=== PATIENT | female | born 2000 | race Caucasian/White ===

== ENCOUNTER 2024-02-15 14:30 | Emergency (ER) | payer OTHER ==
[2024-02-15] MEDS ORDERED: IBUPROFEN 200 MG TAB PO ONE (15:08)
[2024-02-15] MEDS ORDERED: ACETAMINOPHEN 325 MG TABLET ONE (15:08)
--- NOTE | 2024-02-15 17:19 | RAD REPORT ---
EXAM DESCRIPTION: RAD - Ankle Right 3 View - 02/15/2024 3:26 pm CLINICAL HISTORY: PAIN COMPARISON: No comparisons TECHNIQUE: Right ankle, 3 views. FINDINGS: No fracture, dislocation or periosteal reaction. No joint effusion seen. No joint space na rrowing. No soft tissue abnormality. IMPRESSION: Negative right ankle
--- NOTE | 2024-02-15 17:22 | ER ---
Nurse's Notes [facility] Name: Adele Marx Age: 23 yrs Sex: Female : 2000 Arrival Date: 02/15/2024 Time: 14:30 Bed 12 Private MD: Diagnosis: Sprain of unspecified ligament of right ankle, initial encounter Presentation: 02/14 14:49 Chief complaint: Patient states: Pt states while at work she stepped wrong and rolled dd2 her right ankle. C/o of pain. Coronavirus screen: At this time, the client does not indicate any symptoms associated with coronavirus-19. Ebola Screen: No symptoms or risks identified at this time. Initial Sepsis Screen: Does the patient meet any 2 criteria? No. Patient's initial sepsis screen is negative. Does the patient have a suspected source of infection? No. Patient's initial sepsis screen is negative. Risk Assessment: Do you want to hurt yourself or someone else? Patient reports no desire to harm self or others. Onset of symptoms was February 15, 2024. 14:49 Method Of Arrival: Ambulatory dd2 14:49 Acuity: STACY 4 dd2 Triage Assessment: 14:52 General: Appears in no apparent distress. Behavior is calm, cooperative. Pain: dd2 Complains of pain in Rt ankle. Musculoskeletal: Tenderness present in rt ankle. 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 - Infectious Disease History:: Denies. - Social history:: Smoking status: Reported history of juuling and/or vaping. Screenin:09 [facility] ED Fall Risk Assessment (Adult) History of falling in the last 3 months, iw including since admission Yes- single mechanical fall (1 pt) Confusion or Disorientation No (0 pts) Intoxicated or Sedated No (0 pts) Impaired Gait No (0 pts) Mobility Assist Device Used No (0 pt) Altered Elimination No (0 pt) Score/Fall Risk Level 0 - 2 = Low Risk Oriented to surroundings, Maintained a safe environment. Abuse screen: Denies threats or abuse. Nutritional screening: No deficits noted. Tuberculosis screening: No symptoms or risk factors identified. Assessment: 15:15 General: Appears in no apparent distress. Behavior is calm, cooperative. Pain: iw Complains of pain in right leg and right ankle. Neuro: Level of Consciousness is awake, alert, obeys commands, Oriented to person, place, time, situation, Moves all extremities. Respiratory: Airway is patent Respiratory effort is even, unlabored, Respiratory pattern is regular. Musculoskeletal: Range of motion: limited in right ankle Swelling present in right ankle and anterior aspect of right ankle. Vital Signs: 14:49 BP 131 / 80; Pulse 80; Resp 15; Temp 97.4; Pulse Ox 100% ; dd2 ED Course: 14:35 Patient arrived in ED. mg5 14:35 Jenn Castillo PA-C is PHCP. sb4 14:35 Joaquim Francois MD is Attending Physician. sb4 14:52 Triage completed. dd2 14:52 Arm band placed on left wrist. Patient placed in an exam room, on a stretcher, on pulse dd2 oximetry, Patient notified of wait time. 15:04 Apple Kim, NAHID is Primary Nurse. iw 15:28 Ankle Right 3 View XRAY In Process Unspecified. EDMS 15:40 Patient has correct armband on for positive identification. Provided Education on: . iw 16:09 Patient did not have IV access during this emergency room visit. iw 17:21 Khadar García MD is Referral Physician. sb4 17:48 No provider procedures requiring assistance completed. iw Administered Medications: 15:13 Drug: Ibuprofen PO 600 mg PO once Route: PO; iw 15:30 Follow up: Response: No adverse reaction iw 15:13 Drug: Acetaminophen PO 650 mg PO once Route: PO; iw 15:30 Follow up: Response: No adverse reaction iw Medication: 15:15 VIS not applicable for this client. iw Outcome: 17:21 Discharge ordered by . sb4 17:48 Discharged to home ambulatory, iw 17:48 Condition: good 17:48 Discharge instructions given to patient, Instructed on discharge instructions, follow up and referral plans. Demonstrated understanding of instructions, follow-up care, medications, 17:49 Patient left the ED. iw Signatures: Dispatcher [employer] EDMS Apple Kim RN RN iw Jenn Castillo PA-C PA-C sb4 Danyell Soliman mg5 JOSE RAFAEL NARANJO, RN RN dd2
--- NOTE | 2024-02-15 17:22 | EDPHYS ---
Physician Documentation [facility] Name: Adele Marx Age: 23 yrs Sex: Female : 2000 Arrival Date: 02/15/2024 Time: 14:30 Bed 12 Private MD: ED Physician Joaquim Francois HPI: 02/14 15:04 This 23 yrs old Female presents to ER via Ambulatory with complaints of Ankle Injury. sb4 15:04 The patient presents with an injury, pain, that is acute. The complaints affect the sb4 right ankle. Onset: The symptoms/episode began/occurred just prior to arrival. Context: The problem was sustained at work, resulted from a mis-step by the patient, The mechanism of injury involved inversion of the affected ankle. The patient can partially bear weight on the affected extremity. the patient is able to ambulate. Associated signs and symptoms: The patient has no apparent associated signs or symptoms. Modifying factors: The symptoms are alleviated by elevation of extremity, sitting, the symptoms are aggravated by weight bearing, movement. The patient has not experienced similar symptoms in the past. The patient has not recently seen a physician. 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 - Infectious Disease History:: Denies. - Social history:: Smoking status: Reported history of juuling and/or vaping. ROS: 15:04 Constitutional: Negative for fever, chills, and weight loss, sb4 15:04 MS/extremity: Positive for injury or acute deformity, pain, swelling, tenderness, of the right ankle, 15:04 All other systems are negative, Exam: 15:04 Constitutional: This is a well developed, well nourished patient who is awake, alert, sb4 and in no acute distress. Head/Face: Normocephalic, atraumatic. Eyes: Extra-ocular motions intact. Periorbital areas with no swelling, redness, or edema. ENT: Mucous membranes moist. Skin: Warm, dry with normal turgor. Normal color with no rashes, no lesions, and no evidence of cellulitis. 15:04 Musculoskeletal/extremity: Circulation is intact in all extremities. Pulses: are normal with no appreciated deficits, Sensation intact. Joints: the right ankle displays painful range of motion, swelling, tenderness, Vital Signs: 14:49 BP 131 / 80; Pulse 80; Resp 15; Temp 97.4; Pulse Ox 100% ; dd2 MDM: 14:46 Patient medically screened. sb4 15:52 Independent interpretation of the following test(s) in the Emergency Department X-Ray: sb4 My interpretation is my interpretation of the right ankle xray images are no acute fracture or dislocation. 17:21 Data reviewed: vital signs, nurses notes, radiologic studies, and as a result, I will sb4 discharge patient. Counseling: I had a detailed discussion with the patient and/or guardian regarding the historical points, exam findings, and any diagnostic results supporting the discharge/admit diagnosis, radiology results, to return to the emergency department if symptoms worsen or persist or if there are any questions or concerns that arise at home. 02/14 14:58 Order name: Ankle Right 3 View XRAY; Complete Time: 17:21 sb4 02/14 14:58 Order name: Ice pack; Complete Time: 15:13 sb4 02/14 17:21 Order name: Ankle Splint: Aircast; Complete Time: 17:40 sb4 Administered Medications: 15:13 Drug: Ibuprofen PO 600 mg PO once Route: PO; iw 15:30 Follow up: Response: No adverse reaction iw 15:13 Drug: Acetaminophen PO 650 mg PO once Route: PO; iw 15:30 Follow up: Response: No adverse reaction iw Disposition: 18:01 Co-signature as Attending Physician, Joaquim Francois MD I reviewed the patient's care rt provided by the Advanced Practice Provider and agree with the diagnosis and treatment plan. Disposition Summary: 02/15/24 17:21 Discharge Ordered Notes: Location: Home sb4 Problem: new sb4 Symptoms: have improved sb4 Condition: Stable sb4 Diagnosis - Sprain of unspecified ligament of right ankle, initial encounter sb4 Followup: sb4 - With: Khadar García MD - When: As needed - Reason: Recheck today's complaints, Re-evaluation by your physician Discharge Instructions: - Discharge Summary Sheet sb4 - Ankle Sprain sb4 Forms: - Work release form iw - Patient Portal Instructions sb4 - Leadership Thank You Letter sb4 Signatures: Dispatcher [employer] Apple Stringer, RN RN Jenn Chavez PA-C PA-C sb4 Joaquim Francois MD MD rt DAVIS, DIANA RN RN dd2
[2024-02-15 17:53] VITALS: BP 131/80; TEMP 97.4; O2SAT 100
== END 2024-02-15 17:49 | disposition home or self-care (01) ==
LOC: ER 14:30
DX: S93.401A Sprain of unspecified ligament of right ankle, initial encounter (principal)
CPT/HCPCS: 99283